=== PATIENT | male | born 1980 | race Hispanic/Latino ===

== ENCOUNTER 2020-02-20 22:21 | Emergency (ER) | payer OTHER ==
[2020-02-20] MEDS ORDERED: PANTOPRAZOLE SODIUM 40 MG TABLET.DR ONE (23:13)
[2020-02-20] MEDS ORDERED: FAMOTIDINE 20MG TAB 20 MG TAB ONE (23:13)
[2020-02-20] MEDS ORDERED: HYOSCYAMINE SULFATE 0.125 MG TAB.SUBL SL ONE (23:14)
== END 2020-02-20 23:25 | disposition home or self-care (01) ==
LOC: EDH 22:21
DX: R10.13 Epigastric pain (principal)
CPT/HCPCS: 93005